=== PATIENT | male | born 1985 | race African-American/Black ===

== ENCOUNTER 2024-12-24 12:50 | Emergency (ER) | payer MEDICAID ==
[~2024-12-24] VITALS: Ht 172.7 cm; Wt 70.0 kg
[2024-12-24 12:52] VITALS: O2SAT 98
[2024-12-24] MEDS: ACETAMINOPHEN 325MG TABLET PO ONE (14:06)
[2024-12-24] MEDS ORDERED: LEVETIRACETAM 5MG/ML SYR IV ONE (14:45)
[2024-12-24 14:53] LABS: BASOPHILS % 0.9 % (0.0-2.0); EOSINOPHILS % 0.5 % (0.0-5.0); HEMATOCRIT. 30.7 % (42.0-52.0); HEMOGLOBIN. 10.0 g/dL (14.0-18.0); LYMPHOCYTES % 21.6 % (20.0-50.0); MEAN PLATELET VOLUME 7.4 fl (7.4-10.4); MONOCYTES % 6.2 % (2.0-8.0); NEUTROPHILS % 70.8 % (40.0-76.0); PLATELET 223 x1000/uL (130-400); RED BLOOD CELL COUNT 3.23 mill/uL (4.7-6.1); RED CELL DISTRIBUTION WIDTH 15.0 % (11.6-14.6)
[2024-12-24] MEDS: LEVETIRACETAM 500MG PREMIX 100 ML IV SCH (15:04)
[2024-12-24 15:06] LABS: CREATININE 0.8 mg/dL (0.6-1.3); UREA NITROGEN BLOOD 7 mg/dL (9-23)
[2024-12-24 15:08] LABS: ASPARTATE AMINOTRANSFERASE 242 IU/L (<34); BILIRUBIN DIRECT 0.1 mg/dL (<=3.0); BILIRUBIN TOTAL 0.4 mg/dL (0.1-1.0); PROTEIN TOTAL 7.8 g/dL (6.0-8.3)
[2024-12-24] MEDS: LEVETIRACETAM 1500MG PREMIX 100 ML IV SCH ×3 (15:34→16:13)
[2024-12-24] MEDS: MANNITOL 20% (20GM/100ML) BAG 500ML PREMIX IV SCH (15:36)
[2024-12-24 15:41] LABS: INR 1.0
[2024-12-24] MEDS: DEXAMETHASONE 10 MG/ML VIAL IV ONE (17:25)
[2024-12-24] MEDS ORDERED: NICARDIPINE 40MG/200ML PREMIX 200 ML IV ONE (18:30)
[2024-12-24 19:53] VITALS: BP 125/85; PULSE 100; RESP 19; TEMP 36.7; O2SAT 97
== END 2024-12-24 20:29 | disposition short-term general hospital (02) ==
LOC: ER 12:50
DX: S06.5XAA Traumatic subdural hemorrhage with loss of consciousness status unknown, initial encounter (principal); J45.909 Unspecified asthma, uncomplicated; Y04.0XXA Assault by unarmed brawl or fight, initial encounter; Y93.89 Activity, other specified; Y92.89 Other specified places as the place of occurrence of the external cause; Y99.8 Other external cause status
CPT/HCPCS: 80076; 80048; 85025; 85610; 85730; 86850; 86900; 86901; 36415; 70450; 70486; 96365; 96366; 96375; 99285; Z7610 ×2; J1953; J1100